=== PATIENT | male | born 1940 | race Caucasian/White ===

== ENCOUNTER 2019-02-15 09:45 | Day surgery (SDC) | payer MEDICARE ==
[2019-02-15] MEDS ORDERED: LIDOCAINE 2% MDV (20MG/ML) 20ML VIAL IV ONE (09:46)
[2019-02-15] MEDS ORDERED: PROPOFOL 10 MG/ML VIAL IV ONE (09:46)
[2019-02-15 10:33] LABS: INR 1.4
--- NOTE | 2019-02-19 08:20 | Operative Note ---
OPERATION: COLONOSCOPY with cold snare polypectomy x5 and hemoclip application to polypectomy site x2. PREOPERATIVE DIAGNOSIS: History of colon polyps. POSTOPERATIVE DIAGNOSIS: Multiple colon polyps and colonic diverticulosis. PROCEDURE: After informed consent was obtained from the patient, he was placed in the left lateral decubitus position in the endoscopy suite, sedated and monitored by the department of anesthesia. Digital rectal exam was unremarkable. A well-lubricated [id number] colonoscope was inserted into the rectum and advanced to the cecum. A small amount of abdominal pressure was required to cannulate the cecal cap. Upon insertion of the endoscope, multiple polyps were seen and several of these were removed including 2 from the transverse colon and 1 from the descending colon. These polyps range in size from 4-6 mm. All the polyps were retrieved without incident. The cecum and cecal bulb were unremarkable. The ascending colon demonstrated scattered diverticula as well as a 5 mm polyp which was removed with a cold snare and retrieved. The remainder of the transverse colon was unremarkable. Another descending colon polyp was identified and removed with a cold snare. There were a total of 2 descending, 2 transverse, and 1 ascending colon polyps which were removed. The initial descending colon polypectomy site was noted to have a small amount of oozing and as a result, 2 hemoclips were applied for hemostasis. No bleeding persisted. The remainder of the descending colon, sigmoid colon, and rectum were unremarkable other than scattered diverticula in the sigmoid colon of [id number] nature. The rectum was unremarkable in forward and in J-turn views. The endoscope was straightened, the rectal ampulla deflated, and the endoscope was removed. RECOMMENDATIONS: The patient should resume his medications and diet. Based on his age, I do not believe he should undergo another surveillance exam. As always, thank you for allowing me to participate in the healthcare of your patients. JAMAL
== END 2019-02-15 11:20 | disposition home or self-care (01) ==
LOC: HOP 09:45
PROVIDERS: ATTEND Internal Medicine Gastroenterology
DX: Z12.11 Encounter for screening for malignant neoplasm of colon (principal); Z86.010 Personal history of colon polyps; D12.2 Benign neoplasm of ascending colon; D12.4 Benign neoplasm of descending colon; D12.3 Benign neoplasm of transverse colon; K57.30 Diverticulosis of large intestine without perforation or abscess without bleeding; I10 Essential (primary) hypertension; E78.00 Pure hypercholesterolemia, unspecified; Z79.01 Long term (current) use of anticoagulants
CPT/HCPCS: 85610